=== PATIENT | male | born 1960 | race Hispanic/Latino ===

== ENCOUNTER 2022-05-29 13:21 | Emergency (ER) | payer OTHER ==
[~2022-05-29] VITALS: Ht 167.6 cm; Wt 78.0 kg
[2022-05-29] MEDS ORDERED: CYCL10TA16 PO (14:58)
[2022-05-29] MEDS ORDERED: NAPR-1180 PO (14:58)
[2022-05-29] MEDS ORDERED: KETOROLAC 60 MG VIAL (30MG/ML) IM ONE (15:00)
[2022-05-29] MEDS ORDERED: HYDROCODONE/ACETAMINOPHEN 5/325 MG TAB PO ONE (15:00)
[2022-05-29] MEDS ORDERED: DIAZEPAM 5 MG TABLET PO ONE (15:00)
[2022-05-29 15:19] VITALS: BP 139/90
== END 2022-05-29 15:35 | disposition home or self-care (01) ==
LOC: EDH 13:21
DX: S29.012A Strain of muscle and tendon of back wall of thorax, initial encounter (principal); S39.012A Strain of muscle, fascia and tendon of lower back, initial encounter; X58.XXXA Exposure to other specified factors, initial encounter; Y93.89 Activity, other specified; Y92.89 Other specified places as the place of occurrence of the external cause; Y99.8 Other external cause status
CPT/HCPCS: 96372; 99283; J1885

== ENCOUNTER 2022-10-21 21:35 | Emergency (ER) | payer OTHER ==
[~2022-10-21] VITALS: Ht 167.6 cm; Wt 77.1 kg
[~2022-10-21 21:35] MED LIST: CYCL10TA16 PO; NAPR-1180 PO
[2022-10-21] MEDS ORDERED: DiphenhydrAMINE HCL 50 MG/ML VIAL IV ONE (22:00)
[2022-10-21] MEDS ORDERED: FAMOTIDINE 20MG VIAL IV ONE (22:00)
[2022-10-21 22:15] VITALS: BP 137/78
[2022-10-21] MEDS ORDERED: HYDR-3421 PO (22:16)
[2022-10-21] MEDS ORDERED: PERM60CR19 TP (22:16)
[2022-10-21] MEDS ORDERED: HYDROXYZINE 25 MG TABLET PO ONE (22:30)
== END 2022-10-21 22:44 | disposition home or self-care (01) ==
LOC: EDH 21:35
DX: B86 Scabies (principal); Z79.899 Other long term (current) drug therapy; Z98.890 Other specified postprocedural states
CPT/HCPCS: J1200; J3490

== ENCOUNTER 2022-11-11 10:00 | Observation (INO) | payer OTHER ==
[~2022-11-11] VITALS: Ht 167.6 cm; Wt 76.1 kg
[~2022-11-11 10:00] MED LIST changes: -NAPR-1180 PO
[2022-11-11 10:01] LABS: BASOPHILS % (AUTO) 0.4 % (0.0-5.0); EOSINOPHILS % (AUTO) 1.9 % (0.0-8.0); HEMATOCRIT 43.8 % (42-54); LYMPHOCYTES % (AUTO) 28.5 % (21.0-51.0); MEAN CORPUSCULAR HEMOGLOBIN 28.4 pg (27.0-33.0); MEAN CORPUSCULAR VOLUME 88.8 fL (79-99); MONOCYTES % (AUTO) 9.9 % (3.0-13.0); NEUTROPHILS % (AUTO) 58.6 % (40.0-77.0); PLATELET COUNT (AUTO) 214 K/uL (130-400); RED BLOOD CELL COUNT(AUTO) 4.93 MIL/uL (4.50-6.20); RED CELL DISTRIBUTION WIDTH 13.8 % (11.0-15.5); WHITE BLOOD COUNT (AUTO) 6.7 K/uL (4.8-10.8)
[2022-11-11 10:10] LABS: ALBUMIN 3.5 g/dL (3.5-5.0); CARBON DIOXIDE 31 mmol/L (21-32); CHLORIDE 105 mmol/L (101-111); CREATININE 0.8 mg/dL (0.5-1.5); GLOMERULAR FILTR. RATE CALC 104 mL/min (>60); GLUCOSE,RANDOM 87 mg/dL (70-105); POTASSIUM 3.8 mmol/L (3.5-5.1); SODIUM SERUM 141 mmol/L (136-145); UREA NITROGEN, BLOOD 22 mg/dL (7-18)
[2022-11-11 10:11] LABS: CRP QUANTITATIVE < 2.00 mg/L (0.00-9.0)
[2022-11-11 10:13] LABS: INR 0.95 (0.85-1.15); PROTHROMBIN TIME 10.4 SEC (9.6-11.6)
[2022-11-11 10:14] LABS: PARTIAL THROMBOPLASTIN TIME 25.9 SEC (26.3-35.5)
[2022-11-11 11:03] LABS: APPEARANCE,URINE CLEAR (CLEAR); BILIRUBIN,URINE NEGATIVE (NEGATIVE); COLOR,URINE LIGHT-YELLOW (YELLOW); GLUCOSE, URINE (UA) NEGATIVE (NEGATIVE); KETONES,URINE NEGATIVE (NEGATIVE); LEUKOCYTE ESTERASE ,URINE NEGATIVE Leu/uL (NEGATIVE); NITRATE,URINE NEGATIVE (NEGATIVE); OCCULT BLOOD,URINE NEGATIVE (NEGATIVE); PROTEIN,URINE NEGATIVE (NEGATIVE); UROBILINOGEN,URINE 0.2 mg/dL (0.2-1.0)
[2022-11-11 13:55] VITALS: BP 150/103
[2022-11-11] MEDS ORDERED: IBUP-2697 PO (14:01)
[2022-11-11] MEDS ORDERED: ACET-2247 PO (14:01)
[2022-11-11] MEDS ORDERED: LOSA100T58 PO (14:01)
[2022-11-11] MEDS ORDERED: AMLO-257 PO (14:01)
[2022-11-11] MEDS ORDERED: ATOR10TA69 PO (14:01)
[2022-11-11] MEDS ORDERED: METO-409 PO (14:01)
[2022-11-14] VITALS (29 sets, daily range): BP systolic 94–190; BP diastolic 64–98
[2022-11-14] MEDS ORDERED: TRANEXAMIC ACID 1000MG/10ML ONE ×2 (06:21→06:22)
[2022-11-14] MEDS ORDERED: ROPIVACAINE 0.5% 5MG/ML 30ML IJ ONE (06:22)
[2022-11-14] MEDS ORDERED: LACTATED RINGERS 1000ML 1,000 ML IV ONE (07:23)
[2022-11-14] MEDS: CEFAZOLIN SODIUM 2 GM VIAL IVPB SCH ×2 (07:34→08:45)
[2022-11-14] MEDS ORDERED: SUCCINYLCHOLINE CHLORIDE 20 MG/ML 10 ML VIAL ONE (08:42)
[2022-11-14] MEDS ORDERED: LIDOCAINE PF 100MG/5ML (2%) SYRINGE 5ML ONE (08:42)
[2022-11-14] MEDS ORDERED: NEOSTIGMINE 5MG/5ML SYR IV ONE (08:43)
[2022-11-14] MEDS ORDERED: ONDANSETRON 4MG INJ ONE (08:43)
[2022-11-14] MEDS ORDERED: PROPOFOL 10 MG/ML 20ML VIAL IV ONE (08:43)
[2022-11-14] MEDS ORDERED: DEXAMETHASONE SOD PHOSPHATE 10MG/ML 1ML VIAL ONE (08:43)
[2022-11-14] MEDS ORDERED: MIDAZOLAM HCL 1 MG/ML 2ML VIAL ONE (08:43)
[2022-11-14] MEDS ORDERED: GLYCOPYRROLATE 1 MG/5 ML SYRINGE ONE (08:43)
[2022-11-14] MEDS ORDERED: ROCURONIUM 10MG/1ML SYR 10 MG/ML ML ONE ×2 (08:44→09:20)
[2022-11-14] MEDS ORDERED: PHENYLEPHRINE HCL 10 MG/ML 1ML VIAL IV ONE (09:58)
[2022-11-14] MEDS ORDERED: FENTANYL CITRATE PF 50 MCG/1 ML 2ML VIAL ONE (10:39)
[2022-11-14] MEDS ORDERED: POTASSIUM CHLORIDE 20MEQ/100ML 100 ML IV PRN (11:00)
[2022-11-14] MEDS ORDERED: KCL 20 MEQ ERTAB PO PRN (11:00)
[2022-11-14] MEDS ORDERED: DiphenhydrAMINE HCL 50 MG/ML VIAL IVP PRN (11:00)
[2022-11-14] MEDS ORDERED: CALCIUM CARB 500MG PO PRN (11:00)
[2022-11-14] MEDS ORDERED: ONDANSETRON 4MG INJ IVP PRN (11:00)
[2022-11-14] MEDS ORDERED: POTASSIUM CHLORIDE 10% ELIXIR 20 MEQ/15 ML UDCUP PO PRN (11:00)
[2022-11-14] MEDS: 0.9%NACL 1000ML 1,000 ML IV SCH ×2 (11:00→19:21)
[2022-11-14] MEDS ORDERED: LIDOCAINE HCL-MPF 1% 2ML VIAL IV PRN (11:00)
[2022-11-14] MEDS ORDERED: KETOROLAC 15MG/ML VIAL (15MG/ML) IV PRN (11:00)
[2022-11-14] MEDS ORDERED: FERROUS FUMARATE 324 MG TABLET PO PRN (11:00)
[2022-11-14] MEDS ORDERED: HYDROMORPHONE 1 MG INJ ONE ×2 (11:17→11:49)
[2022-11-14] MEDS: GABAPENTIN 100 MG CAPSULE PO SCH ×2 (14:00→20:43)
[2022-11-14] MEDS: KETOROLAC 15MG/ML VIAL (15MG/ML) IV SCH ×2 (14:05→19:22)
[2022-11-14] MEDS: AMLODIPINE 5 MG TAB PO SCH (14:10)
[2022-11-14] MEDS: LOSARTAN 100 MG TABLET PO SCH (14:12)
[2022-11-14] MEDS: METOPROLOL SUCCINATE 50 MG TAB.SR.24H PO SCH (14:13)
[2022-11-14] MEDS: CEFAZOLIN SODIUM 1 GM VIAL IVP SCH ×2 (16:19→23:25)
[2022-11-14] MEDS: CYCLOBENZAPRINE HCL 10 MG TABLET PO PRN (16:19)
[2022-11-14] MEDS: DOCUSATE SODIUM 100 MG CAP PO SCH (20:42)
[2022-11-14] MEDS: ATORVASTATIN 10 MG TABLET PO SCH (20:43)
[2022-11-14] MEDS: HYDROCODONE/ACETAMINOPHEN 5/325 MG TAB PO PRN (20:43)
[2022-11-15] MEDS: KETOROLAC 15MG/ML VIAL (15MG/ML) IV SCH (03:14)
[2022-11-15 03:51] VITALS: BP 128/86
[2022-11-15 05:02] LABS: HEMATOCRIT 36.7 % (42-54); MEAN CORPUSCULAR HGB CONC 32.7 g/dL (32.0-36.0); MEAN CORPUSCULAR VOLUME 85.7 fL (79-99); RED BLOOD CELL COUNT(AUTO) 4.28 MIL/uL (4.50-6.20); RED CELL DISTRIBUTION WIDTH 13.4 % (11.0-15.5); WHITE BLOOD COUNT (AUTO) 12.1 K/uL (4.8-10.8)
[2022-11-15 05:16] LABS: CREATININE 0.9 mg/dL (0.5-1.5); POTASSIUM 4.3 mmol/L (3.5-5.1)
[2022-11-15] MEDS: 0.9%NACL 1000ML 1,000 ML IV SCH (06:36)
[2022-11-15 07:30] VITALS: BP 131/96
[2022-11-15] MEDS ORDERED: ASPIRIN 325MG TAB ONE (08:02)
[2022-11-15] MEDS: LOSARTAN 100 MG TABLET PO SCH (08:07)
[2022-11-15] MEDS: GABAPENTIN 100 MG CAPSULE PO SCH ×3 (08:07→20:36)
[2022-11-15] MEDS: METOPROLOL SUCCINATE 50 MG TAB.SR.24H PO SCH (08:07)
[2022-11-15] MEDS: DOCUSATE SODIUM 100 MG CAP PO SCH ×2 (08:07→20:36)
[2022-11-15] MEDS: POLYETHYLENE GLYCOL 3350 17 GM POWD.PACK PO SCH (08:07)
[2022-11-15] MEDS: AMLODIPINE 5 MG TAB PO SCH (08:07)
[2022-11-15] MEDS: HYDROCODONE/ACETAMINOPHEN 5/325 MG TAB PO PRN (08:08)
[2022-11-15] MEDS: CYCLOBENZAPRINE HCL 10 MG TABLET PO PRN ×2 (10:50→18:27)
[2022-11-15 11:00] VITALS: BP 108/49
[2022-11-15] MEDS: TRAMADOL HCL 50 MG TABLET PO PRN ×2 (12:55→17:21)
[2022-11-15 16:00] VITALS: BP 127/84
[2022-11-15 19:57] VITALS: BP 131/89
[2022-11-15] MEDS: ATORVASTATIN 10 MG TABLET PO SCH (20:35)
[2022-11-15 23:49] VITALS: BP 153/99
[2022-11-16 03:11] VITALS: BP 153/95
[2022-11-16] MEDS: HYDROCODONE/ACETAMINOPHEN 5/325 MG TAB PO PRN (06:31)
[2022-11-16 08:00] VITALS: BP 145/99
[2022-11-16] MEDS ORDERED: ASPIRIN 325MG TAB PO SCH (09:00)
[2022-11-16] MEDS: DOCUSATE SODIUM 100 MG CAP PO SCH (10:00)
[2022-11-16] MEDS: METOPROLOL SUCCINATE 50 MG TAB.SR.24H PO SCH (10:00)
[2022-11-16] MEDS: AMLODIPINE 5 MG TAB PO SCH (10:00)
[2022-11-16] MEDS: LOSARTAN 100 MG TABLET PO SCH (10:00)
[2022-11-16] MEDS: GABAPENTIN 100 MG CAPSULE PO SCH ×2 (10:01→14:24)
[2022-11-16] MEDS: POLYETHYLENE GLYCOL 3350 17 GM POWD.PACK PO SCH (10:01)
[2022-11-16] MEDS ORDERED: NITROFURANTOIN MONOHYD/M-CRYST 100 MG CAPSULE PO SCH (10:30)
[2022-11-16] MEDS ORDERED: DOCU-116 PO (11:39)
[2022-11-16] MEDS ORDERED: NITR100C4 PO (11:39)
[2022-11-16] MEDS ORDERED: ASPI-1026 PO (11:39)
[2022-11-16] MEDS ORDERED: GABA100C PO (11:39)
[2022-11-16] MEDS ORDERED: HYDR-4060 PO (11:39)
[2022-11-16 12:00] VITALS: BP 137/81
[2022-11-16 16:00] VITALS: BP 120/68
[2022-11-17] MEDS ORDERED: BISACODYL 10 MG SUPP.RECT RC PRN (11:00)
== END 2022-11-16 16:00 | disposition home or self-care (01) ==
LOC: EDSTATUS 10:00 → DAHIP 11-14 07:11 → 4CH 11-14 12:45
PROVIDERS: ADMIT Student in an Organized Health Care Education/Training Program; ATTEND Student in an Organized Health Care Education/Training Program
DX: M16.12 Unilateral primary osteoarthritis, left hip (principal); Z20.822 Contact with and (suspected) exposure to COVID-19; R26.89 Other abnormalities of gait and mobility; M25.552 Pain in left hip; Z79.82 Long term (current) use of aspirin; Z79.899 Other long term (current) drug therapy; Z98.890 Other specified postprocedural states
CPT/HCPCS: 82040; 80048 ×2; 85025; 85610; 85730; 87077; 87088; 87186; 84134; 86140; 87426; 81003; 36415 ×2; 87641; 27130; 96374; 96376 ×2; 96375; 76942; 64450; 73502; 73503; 97161; 97039 ×5; 85027; 97116 ×4; 97530 ×4; G0378 ×50; G0379; A4663; J7120 ×2; C1776; J3010; J0690 ×4; J1170 ×2; J3490 ×3; J1100; J2710; J0330; J2001; J2250; J2704; J2405; J2795; J1885 ×3; J2370; A4649 ×4; G0168; A6255; A5120; A4215; A4223; A4222; A4221; J7030

== ENCOUNTER 2023-02-12 10:48 | Emergency (ER) | payer OTHER ==
[~2023-02-12] VITALS: Ht 167.6 cm; Wt 76.2 kg
[~2023-02-12 10:48] MED LIST changes: +AMLO-257 PO; +ASPI-1026 PO; +ATOR10TA69 PO; +DOCU-116 PO; +GABA100C PO; +HYDR-4060 PO; +IBUP-2697 PO; +LOSA100T58 PO; +METO-409 PO; +NITR100C4 PO
[2023-02-12 10:51] VITALS: BP 122/61
[2023-02-12] MEDS ORDERED: BENZ200C53 PO (12:40)
[2023-02-12] MEDS ORDERED: [UNRECOGNIZED DRUG - CODE] PO (12:40)
== END 2023-02-12 12:51 | disposition home or self-care (01) ==
LOC: EDH 10:48
DX: J06.9 Acute upper respiratory infection, unspecified (principal); I10 Essential (primary) hypertension; Z20.822 Contact with and (suspected) exposure to COVID-19; Z79.899 Other long term (current) drug therapy; Z98.890 Other specified postprocedural states
CPT/HCPCS: 99284; 71045; 87635; 87804 ×2; C9803

== ENCOUNTER → 2023-03-23 | Outpatient (CLI) | payer OTHER ==
[~2023-03-23] MED LIST changes: +BENZ200C53 PO; +[UNRECOGNIZED DRUG - CODE] PO
== END | disposition home or self-care (01) ==
LOC: RAH 14:43
PROVIDERS: ATTEND Family Medicine
DX: R10.32 Left lower quadrant pain (principal); G89.29 Other chronic pain
CPT/HCPCS: 76882

== ENCOUNTER → 2023-05-16 | Outpatient (CLI) | payer OTHER ==
[~2023-05-16] MED LIST changes: -LOSA100T58 PO; +LOSA100T59 PO
== END | disposition home or self-care (01) ==
LOC: RAH 09:54
PROVIDERS: ATTEND Surgery
DX: K57.30 Diverticulosis of large intestine without perforation or abscess without bleeding (principal); R10.32 Left lower quadrant pain; M16.11 Unilateral primary osteoarthritis, right hip
CPT/HCPCS: 72192

== ENCOUNTER → 2024-12-20 | Outpatient (CLI) | payer OTHER ==
--- NOTE | 2024-12-20 11:43 | HMCIMG ---
BONE LENGTH STUDIES REASON: OSTEOARTHRITIS OF RIGHT KNEE. COMPARISON: None TECHNIQUE: Bone imaging study was performed of right lower extremity. FINDINGS: There is deformity noted of the right femur consistent with healing fracture. There is also periosteal reaction noted of the right proximal tibia may be related to old trauma. Right femur measures approximately 46 cm. Right tibia measures approximately 39 cm. Left lower extremity is not imaged. IMPRESSION: Findings as described above.
== END | disposition home or self-care (01) ==
LOC: RAH 12-19 08:55
PROVIDERS: ATTEND Student in an Organized Health Care Education/Training Program
DX: M21.951 Unspecified acquired deformity of right thigh (principal); M17.11 Unilateral primary osteoarthritis, right knee
CPT/HCPCS: 77073

== ENCOUNTER → 2024-12-24 | Outpatient (CLI) | payer OTHER ==
--- NOTE | 2024-12-24 13:59 | HMCIMG ---
MR KNEE RIGHT WO REASON: M17.9 Osteoarthritis of knee, unspecified COMPARISON: None TECHNIQUE: Routine imaging protocol was performed in the axial, sagittal, coronal plane with T1, proton density, T2 and gradient recalled sequences. FINDINGS: There is severe osteoarthritis in the medial joint compartment. There is complete loss of articular cartilage with [id number] articulation. The medial meniscus is severely degenerated and pushed outside of the joint space by osteophytes along the joint margins. There is osseous marrow edema in the medial femoral condyle and in the medial tibial plateau from [id number] articulation. There is narrowing in the lateral joint compartment which is almost as severe. The lateral meniscus appears severely degenerated, findings most pronounced in the anterior horn and mid zone. Patellofemoral joint space appears severely narrowed as well. Cruciate and collateral ligaments appear intact. Quadriceps and patellar tendons are unremarkable. There is a small joint effusion. Surrounding soft tissues appear unremarkable. IMPRESSION: 1. Severe joint space narrowing and degenerative changes in the medial joint compartment, there are findings of end-stage osteoarthritis. 2. There is narrowing of the patellofemoral and in the lateral joint compartment nearly as severe, also consistent with marked osteoarthritis. 3. Small joint effusion.
== END | disposition home or self-care (01) ==
LOC: RAH 09:40
PROVIDERS: ATTEND Student in an Organized Health Care Education/Training Program
DX: M17.11 Unilateral primary osteoarthritis, right knee (principal); M25.461 Effusion, right knee; M25.861 Other specified joint disorders, right knee
CPT/HCPCS: 73721